=== PATIENT | female | born 1955 | race Asian ===

== ENCOUNTER 2019-05-13 15:00 | Emergency (ER) | payer MEDICARE ==
--- NOTE | 2019-05-13 15:52 | Event Note ---
ED Screening Note ED Screening Note: FINGER PAIN SEEN IN [facility] LAST NIGHT DID NOT COME TO ER UNTIL NOW This initial assessment/diagnostic orders/clinical plan/treatment(s) is/are subject to change based on patients health status, clinical progression and re- assessment by fellow clinical providers in the ED. Further treatment and workup at subsequent clinical providers discretion. Patient/guardian urged not to elope from the ED as their condition may be serious if not clinically assessed and managed. Initial orders include: XRAY
--- NOTE | 2019-05-13 16:55 | XRay Report ---
PROCEDURE: XR FINGER(S) 2+V LT TECHNIQUE: Left fourth finger 4 views HISTORY: PAIN COMPARISONS: FINDINGS: There is dislocation at the PIP joint of the fourth digit. The middle phalanx is dorsally dislocated relative to the proximal phalanx with some override. No definitive fracture identified. IMPRESSION: Dislocation at the PIP joint fourth digit. This document is electronically signed by Remi Reddy MD., May 13 2019 04:53:46 PM ET
[2019-05-13] MEDS ORDERED: XYLOCAINE 2% INFILTRATI ONE (17:02)
[2019-05-13] MEDS ORDERED: IBUPROFEN PO ONE (17:03)
[2019-05-13] MEDS ORDERED: NORCO 5/325 PO ONE (19:40)
--- NOTE | 2019-05-13 20:23 | Emergency Department Report ---
ED Upper Extremity Inj HPI - General Chief Complaint: Extremity Injury, Upper Stated Complaint: POSS FINGER BROKEN Time Seen by Provider: 05/13/19 15:50 Source: patient Mode of arrival: Ambulatory Limitations: No Limitations - History of Present Illness Initial Comments: Patient 63 -[place] female status post fall and that last night complaining of left ring finger pain and deformity about 2:30 this morning is pain aching and deformity since there is no laceration or bleeding rom restricted by pain. MD Complaint: Injury to:: left Onset/Timin Other Extremity Injury: Fingers: Left (ring finger ) Other Injuries: none Handedness: right Place: home Severity scale (0 -10): 4 Improves With: none Worsens With: movement of extremity Context: direct blow Associated Symptoms: heard/felt popping sensat Treatments Prior to Arrival: cold therapy - Related Data Previous Rx's Medication Instructions Recorded Last Taken Type traMADol [Ultram] 50 mg PO Q6HR PRN #12 tablet 05/13/19 Unknown Rx Allergies Allergy/AdvReac Type Severity Reaction Status Date / Time No Known Allergies Allergy Unverified 05/13/19 15:02 ED Review of Systems ROS: Stated complaint: POSS FINGER BROKEN Other details as noted in HPI Constitutional: denies: chills, fever Eyes: denies: eye pain, eye discharge, vision change ENT: denies: ear pain, throat pain Respiratory: no symptoms reported Cardiovascular: denies: chest pain, palpitations Endocrine: no symptoms reported Gastrointestinal: as per HPI Genitourinary: denies: urgency, dysuria Musculoskeletal: joint swelling, other (left ring finger pain swelling deformity). denies: back pain, arthralgia Skin: denies: rash, lesions Neurological: denies: headache, weakness, paresthesias Psychiatric: denies: anxiety, depression Hematological/Lymphatic: denies: easy bleeding, easy bruising ED Past Medical Hx - Past Medical History Previous Medical History?: Yes Hx Hypertension: Yes Additional medical history: Sciatica - Surgical History Past Surgical History?: Yes Additional Surgical History: - Social History Smoking Status: Never Smoker - Medications Home Medications: Home Medications Medication Instructions Recorded Confirmed Last Taken Type traMADol [Ultram] 50 mg PO Q6HR PRN #12 tablet 05/13/19 Unknown Rx ED Physical Exam - General Limitations: No Limitations General appearance: alert, in no apparent distress - Head Head exam: Present: atraumatic, normocephalic - Eye Eye exam: Present: normal appearance, PERRL, EOMI - ENT ENT exam: Present: normal orophraynx, mucous membranes moist, TM's normal bilaterally, normal external ear exam - Neck Neck exam: Present: normal inspection, full ROM. Absent: tenderness, lym phadenopathy - Respiratory Respiratory exam: Present: normal lung sounds bilaterally. Absent: respiratory distress, wheezes, stridor, chest wall tenderness - Cardiovascular Cardiovascular Exam: Present: regular rate, normal rhythm, normal heart sounds - GI/Abdominal GI/Abdominal exam: Present: soft, rebound, normal bowel sounds. Absent: distended, tenderness, bruit, hernia - Rectal Rectal exam: Present: deferred - External exam: Present: other (deferred ) - Extremities Exam Extremities exam: Present: full ROM, tenderness (left ring finger ), normal capillary refill, joint swelling, other (abrasion ). Absent: pedal edema, calf tenderness - Back Exam Back exam: Present: normal inspection, full ROM, CVA tenderness (R), CVA tenderness (L), rash noted (in the). Absent: tenderness, muscle spasm, paraspinal tenderness - Neurological Exam Neurological exam: Present: alert, oriented X3, CN II-XII intact, normal gait, reflexes normal - Psychiatric Psychiatric exam: Present: normal affect, normal mood - Skin Skin exam: Present: warm (I), dry, intact, normal color. 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 ED Medical Decision Making - Medical Decision Making left ring finge for reduction,see procedure note post reduction xray is normal, pt given finger splint and wound care instructions pt verbalized agreement and understanding of same pt dc'd to home in stable condition at this time, pt tolerated procedure with minimal distress, Critical care attestation.: If time is entered above; I have spent that time in minutes in the direct care of this critically ill patient, excluding procedure time. ED Disposition Clinical Impression: Finger dislocation Qualifiers: Encounter type: initial encounter Qualified Code(s): S63.259A - Unspecified dislocation of unspecified finger, initial encounter Disposition: TO HOME OR SELFCARE Is pt being admited?: No Does the pt Need Aspirin: No Condition: Stable Instructions: Finger Dislocation (ED), Finger Sprain (ED) Prescriptions: traMADol [Ultram] 50 mg PO Q6HR PRN #12 tablet PRN Reason: Pain Referrals: RAVEN PAREDES MD [Staff Physician] - 3-5 Days Forms: Work/School Release Form(ED) Time of Disposition: 20:43
--- NOTE | 2019-05-13 20:32 | XRay Report ---
PROCEDURE: XR HAND 1V RT HISTORY: post reduction left ring finger 4th digit FINDINGS: Single PA view of the left hand was acquired and compared to prior radiographs of earlier i n the day. These images demonstrate successful relocation of the fourth proximal interphalangeal join t. There is mild soft tissue swelling of the fourth digit. No fracture is seen. IMPRESSION: Successful relocation of fourth proximal interphalangeal joint This document is electronically signed by Kirk Melendrez MD., May 13 2019 08:30:07 PM ET
[2019-05-13 20:33] VITALS: BP 139/85
== END 2019-05-13 20:35 | disposition home or self-care (01) ==
LOC: ED 15:00
DX: S63.285A Dislocation of proximal interphalangeal joint of left ring finger, initial encounter (principal); I10 Essential (primary) hypertension; W18.30XA Fall on same level, unspecified, initial encounter; Y93.89 Activity, other specified; Y92.098 Other place in other non-institutional residence as the place of occurrence of the external cause; Y99.8 Other external cause status
CPT/HCPCS: 99283